=== PATIENT | female | born 1955 | race African-American/Black ===

== ENCOUNTER 2017-06-03 02:44 | Emergency (ER) | payer MEDICAID ==
[~2017-06-03] VITALS: Ht 149.9 cm; Wt 73.0 kg
[~2017-06-03 02:44] MED LIST: AMLO10TA80 PO; ASPI-1158 PO; ATOR-2 PO; BUME2TAB3 PO; CLON0.1T PO; CLOP75TA16 PO; DOCU-138 PO; GABA-531 PO; LANTUS INSULIN SUBCUT; LOSA50TA20 PO; METF10002 PO
[2017-06-03] MEDS ORDERED: HYDROCODONE/ACETAMINOPHEN 5/325MG TABLET PO STA (03:01)
[2017-06-03] MEDS ORDERED: SODIUM CHLORIDE 0.9% 1,000 ML IV ONE (03:08)
[2017-06-03 03:31] LABS: BASOPHILS % 0.6 % (0.0-2.0); EOSINOPHILS % 4.2 % (0.0-5.0); HEMATOCRIT. 36.9 % (36.0-48.0); HEMOGLOBIN. 12.2 g/dL (12.0-16.0); LYMPHOCYTES % 39.1 % (20.0-50.0); MEAN CORPUSCULAR HEMOGLOBIN 29.6 pg (28.0-32.0); MEAN PLATELET VOLUME 9.2 fl (7.4-10.4); MONOCYTES % 8.7 % (2.0-8.0); NEUTROPHILS % 47.4 % (40.0-76.0); PLATELET 279 x1000/uL (130-400); RED CELL DISTRIBUTION WIDTH 14.7 % (11.6-14.6)
[2017-06-03 03:38] LABS: PROTHROMBIN TIME 10.2 sec (9.4-11.6)
[2017-06-03 03:48] LABS: CHLORIDE 104 mEq/L (98-107); ETHANOL BLOOD < 10 mg/dL; TROPONIN I 0.02 ng/mL (0.00-0.04)
[2017-06-03 09:25] VITALS: BP 119/66
== END 2017-06-03 09:24 | disposition home or self-care (01) ==
LOC: ER 02:53
DX: R51 Headache (principal); E86.0 Dehydration; J01.00 Acute maxillary sinusitis, unspecified; E11.65 Type 2 diabetes mellitus with hyperglycemia; J45.909 Unspecified asthma, uncomplicated; I10 Essential (primary) hypertension; I25.2 Old myocardial infarction; Z95.1 Presence of aortocoronary bypass graft; Z79.4 Long term (current) use of insulin; Z89.612 Acquired absence of left leg above knee; Z89.611 Acquired absence of right leg above knee; Z90.49 Acquired absence of other specified parts of digestive tract
CPT/HCPCS: 36415; 70450; 71045; 80053; 83880; 84484; 85025; 85610; 93005; 99285; G0482; J7030; Z7610